=== PATIENT | female | born 1985 | race Caucasian/White ===

== ENCOUNTER 2023-09-22 13:52 | Outpatient (CLI) | payer BC, SELFPAY ==
--- NOTE | ~2023-09-22 | XR_ITS ---
XR chest 2V DATE: 09/22/2023 14:12 INDICATION: Cough for 3 weeks TECHNIQUE: PA and lateral views COMPARISON: None FINDINGS: Normal heart size. No hilar or mediastinal enlargement. No pulmonary infiltrate or consolid ation, pleural effusion or pulmonary vascular congestion or pneumothorax is detected. Surgical clips overlie the medial upper left abdomen. IMPRESSION: No active cardiopulmonary disease Reviewed, dictated and finalized at location [facility].
== END 2023-09-22 13:53 | disposition home or self-care (01) ==
LOC: ANHIMG 13:58
PROVIDERS: PCP Family Medicine; Visit Provider Physician Assistant
DX: R05.9 Cough, unspecified (principal)
CPT/HCPCS: 71046

== ENCOUNTER 2024-01-31 08:07 | Emergency (ER) | payer BC, SELFPAY ==
[2024-01-31] VITALS (8 sets, daily range): BP systolic 91–124; BP diastolic 58–84; PULSE 74–89; RESP 14–20; TEMP 36.9; O2SAT 100
--- NOTE | ~2024-01-31 | CT_ITS ---
CT of the Abdomen and Pelvis: Indication: Abdominal pain Technique: 2.5 mm axial scans were obtained through the abdomen and pelvis following intravenous adm inistration of 100 cc of Omnipaque 350. Dose reduction technique was used on this scan by utilizing a utomated exposure control and iterative reconstruction technique. The dose-length product (DLP) was 8 25.89 mGy-cm. Findings: Scans through the lung bases are unremarkable. The liver, spleen, pancreas, gallbladder, adrenals and kidneys are within normal limits. No evidence of aortic aneurysm. No lymphadenopathy. No bowel obstruction or bowel wall thickening. Evidence of prior bariatric surgery. Images through the pelvis were performed. Urinary bladder unremarkable. No pelvic mass seen. No ascit es. Impression: No acute abnormalities seen. Status post bariatric surgery. Reviewed, dictated and finalized at [facility]. Impression: No acute abnormalities seen. Status post bariatric surgery.
[2024-01-31 09:50] LABS: Basophils Percent Auto 0.6 % (0.2-1.2); Eosinophils Absolute Auto 0.4 K/mm3 (0-0.3); Eosinophils Percent Auto 10.1 % (0-4.4); Hematocrit 39.4 % (37.0-47.0); Hemoglobin 12.4 g/dL (12.0-15.0); Lymphocytes Absolute Auto 1.26 K/mm3 (0.9-3.2); Lymphocytes Percent Auto 36.3 % (18.3-44.2); Mean Corpuscular HGB Conc 31.5 g/dl (32-36); Mean Corpuscular Hemoglobin 28.4 pg (26-34); Mean Corpuscular Volume 90.2 fl (80-100); Mean Platelet Volume 9.7 fl (7.4-10.4); Monocytes Absolute Auto 0.5 K/mm3 (0.1-0.6); Monocytes Percent Auto 14.1 % (2.6-8.5); Neutrophils Absolute Auto 1.4 K/mm3 (1.3-6.7); Neutrophils Percent Auto 38.9 % (45.5-73.1); Platelet Count Result 233 k/mm3 (150-375); Red Blood Count 4.37 M/mm3 (4.2-5.4); Red Cell Distribution Width 13.6 % (11.5-14.5); White Blood Count 3.5 K/mm3 (4.5-10.0)
[2024-01-31 09:54] LABS: Add Urine Microscopic? YES; Appearance Urine Clear (Clear); Bilirubin Urine Negative (Negative); Blood Urine Negative (Negative); Color Urine Dark Yellow (Yellow); Glucose Urine UA Negative (Negative); Ketones Urine Trace mg/dL (Negative); Leukocyte Esterase Ur Negative LEU/UL (Negative); Nitrate Urine Negative (Negative); Protein Urine Negative (Negative); Specific Grav Ur 1.031 (1.001-1.035); Urobilinogen Urine 0.2 mg/dL (<2.0); pH Urine 5.5 (5.0-9.0)
[2024-01-31 10:01] LABS: Alanine Aminotransferase 51 U/L (6-35); Alkaline Phosphatase 47 U/L (38-126); Anion Gap 5 mmol/L (4-12); Aspartate Amino Transferase 39 U/L (14-36); Bilirubin,Total 0.3 mg/dL (0.2-1.3); Blood Urea Nitrogen 13 mg/dL (7-17); Calcium 8.6 mg/dL (8.4-10.2); Carbon Dioxide 24 mmol/L (22-30); Chloride 107 mmol/L (98-107); Estimated CRCL calculation 109 ml/min; Estimated Glomerular Filt Rate > 60; Glucose 86 mg/dL (65-110); Lipase 129 U/L (23-300); Potassium 4.1 mmol/L (3.4-5.0); Sodium 136 mmol/L (137-145)
--- NOTE | 2024-01-31 10:02 | ED.ABDPAIN ---
HPI - Abdominal Pain General Chief Complaint: Abdominal Pain Stated Complaint: LLQ, L flank pain, n/v/d Time Seen by Provider: 01/31/24 09:18 Source: patient Mode of arrival: ambulatory Limitations: no limitations History of Present Illness HPI narrative: this is a 38-year-old female that presents to the emergency department for left-sided abdominal pain. Ongoing over the last 4 days. Reports associated diarrhea and nausea. Reports the pain radiates into her flank. Denies fevers, vomiting, dysuria, or hematuria. Related Data Allergies Allergy/AdvReac Type Severity Reaction Status Date / Time carbamazepine [From Tegretol] Allergy Mild Rash Verified 01/31/24 08:19 codeine Allergy Mild Hives Verified 01/31/24 12:50 ibuprofen Allergy Mild Hives Verified 01/31/24 08:19 Review of Systems Review of Systems: CONSTITUTIONAL: Denies fever GASTROINTESTINAL: Reports abdominal pain, nausea, and diarrhea. GENITOURINARY: Denies dysuria or hematuria. All systems reviewed & are unremarkable except as noted in HPI and below PMFSH Past Medical History Medical History Alcohol abuse Anxiety Depression PCOS (polycystic ovarian syndrome) PSVT (paroxysmal supraventricular tachycardia) Surgical History Surgical History History of bariatric surgery gastric bypass History of hysterectomy still w/ ovaries Family History Family History Father Carcinoma of colon Hypertension Diabetes mellitus Cerebrovascular accident Sibling Hypertension Social History Social History Smoking status: Never smoker Alcohol intake: never Substance use: never Living arrangements: with family Occupation/Education: occupation Additional occupation/education comments: Works at [employer] Gender identity (if verbalized by the patient): Female Exam Narrative: GENERAL: Well-appearing, well-nourished, and in no acute distress. HEAD: Normocephalic, atraumatic. EYES: EOMI. CHEST: Clear to auscultation. No respiratory distress. No wheezes rales or rhonchi HEART: Regular rate and rhythm. No murmur heard. Normal peripheral pulses. ABDOMEN: Soft, nondistended, normal active bowel sounds. Tender to palpation throughout the left side of the abdomen, without guarding EXTREMITIES: Normal range of motion. No edema. SKIN: Warm, dry, no rash. NEURO: No focal deficits. Alert and oriented x3. PSYCH: Normal mood and affect Course Course Emergency Course: Patient updated on workup and agrees with plan of care Vital Signs Vital signs: Vital Signs Temperature 98.4 F 01/31/24 08:13 Pulse Rate 87 01/31/24 08:13 Respiratory Rate 16 01/31/24 08:13 Blood Pressure 116/77 01/31/24 08:13 Pulse Oximetry 100 01/31/24 08:13 Oxygen Delivery Room Air 01/31/24 08:13 Temperature 98.4 F 01/31/24 08:13 Pulse Rate 76 01/31/24 12:55 Respiratory Rate 14 01/31/24 12:55 Blood Pressure 120/74 01/31/24 12:55 Pulse Oximetry 100 01/31/24 12:55 Oxygen Delivery Room Air 01/31/24 08:13 MDM - Abdominal Pain MDM Narrative Medical decision making narrative: patient presents to the emergency department for abdominal discomfort and diarrhea. She is afebrile and nontoxic appearing. Her vitals are stable. Cbc without leukocytosis. Metabolic panel with mild transaminitis. Lipase is normal. Urine without evidence of infection. CT scan of the abdomen and pelvis is without acute findings. Patient was updated on her workup and agrees with plan of care. She is to follow up with primary provider. She was given warnings to return to the ER Differential Diagnosis Differential diagnosis: Likely calculus of kidney, diverticulitis and other (colitis) Lab Data Attestation: I reviewed the patient's lab results. 10
[2024-01-31] MEDS: SODIUM CHLORIDE 0.9% IV 1,000 ML 999 ML IV CONT (10:11)
[2024-01-31] MEDS: ONDANSETRON INJ 4 MG/2 ML VIAL IV PUSH (10:11)
[2024-01-31 10:19] LABS: Atypical Lymphocytes Present; Platelet Estimate Adequate (Adequate); Schistocytes None Seen
[2024-01-31] MEDS: SODIUM CHLORIDE 0.9% IV 500 ML 999 ML IV CONT (12:55)
== END 2024-01-31 13:51 | disposition home or self-care (01) ==
PROVIDERS: Emergency Provider Physician Assistant; PCP Family Medicine
DX: R19.7 Diarrhea, unspecified (principal); E28.2 Polycystic ovarian syndrome; Z90.710 Acquired absence of both cervix and uterus; Z98.84 Bariatric surgery status; Z79.84 Long term (current) use of oral hypoglycemic drugs; Z79.899 Other long term (current) drug therapy
CPT/HCPCS: 36415; 74177; 80053; 81001; 83690; 85025; 96361; 96374; 99284; J2405; J7030; J7040; Q9967